=== PATIENT | female | born 1940 | race Caucasian/White ===

== ENCOUNTER 2017-11-08 15:37 | Emergency (ER) | payer OTHER ==
[~2017-11-08] VITALS: Ht 154.9 cm; Wt 35.8 kg
[2017-11-08] MEDS ORDERED: RILUTEK50 MG (16:07)
[2017-11-08] MEDS ORDERED: COZAAR50 MG (16:07)
== END 2017-11-08 21:52 | disposition home or self-care (01) ==
LOC: ER 15:37 → EDBD 15:39 → ER 15:39
DX: R06.02 Shortness of breath (principal)

== ENCOUNTER 2017-11-19 08:49 | Inpatient (IN) | payer OTHER ==
[~2017-11-19] VITALS: Ht 152.4 cm; Wt 31.8 kg
[~2017-11-19 08:49] MED LIST: COZAAR50 MG; RILUTEK50 MG
[2017-11-21] MEDS ORDERED: RILUTEK50 MG PO (12:53)
[2017-11-21] MEDS ORDERED: COZAAR50 MG PO (12:53)
[2017-11-21] MEDS ORDERED: ACID REDUCER20 MG PO (12:54)
== END 2017-11-21 13:53 | disposition home health service (06) | DRG 57 ==
LOC: SURH 08:49 → MEDI 08:49 → SURH 10:29
PROC: 0DH63UZ Insertion of Feeding Device into Stomach, Percutaneous Approach (ICD-10-PCS; principal; 2017-11-19)
PROC: 4A12X4Z Monitoring of Cardiac Electrical Activity, External Approach (ICD-10-PCS; 2017-11-19)
DX: G12.21 Amyotrophic lateral sclerosis (principal); J96.10 Chronic respiratory failure, unspecified whether with hypoxia or hypercapnia; R13.19 Other dysphagia; I11.9 Hypertensive heart disease without heart failure
CPT/HCPCS: 240

== ENCOUNTER 2017-11-25 10:33 | Inpatient (IN) | payer OTHER ==
[~2017-11-25] VITALS: Ht 152.4 cm; Wt 33.1 kg
[~2017-11-25 10:33] MED LIST changes: +ACID REDUCER20 MG PO; +COZAAR50 MG PO; +RILUTEK50 MG PO
[2017-12-30] MEDS ORDERED: XOPENEX0.63 MG/3 IH (12:57)
[2017-12-30] MEDS ORDERED: RILUTEK50 MG PO (12:57)
[2017-12-30] MEDS ORDERED: ACID REDUCER20 MG PO (12:57)
[2017-12-30] MEDS ORDERED: COZAAR50 MG PO (12:57)
== END 2017-12-30 16:59 | disposition home health service (06) | DRG 4 ==
LOC: ER 10:33 → MEDI 21:57 → SEC-K 21:57 → MEDI 11-29 12:16
PROVIDERS: Otolaryngology
PROC: 4A033R1 Measurement of Arterial Saturation, Peripheral, Percutaneous Approach (ICD-10-PCS; 2017-11-25)
PROC: 5A09557 Assistance with Respiratory Ventilation, Greater than 96 Consecutive Hours, Continuous Positive Airway Pressure (ICD-10-PCS; 2017-11-26)
PROC: 4A12X4Z Monitoring of Cardiac Electrical Activity, External Approach (ICD-10-PCS; 2017-11-29)
PROC: 5A1955Z Respiratory Ventilation, Greater than 96 Consecutive Hours (ICD-10-PCS; 2017-12-10)
PROC: 0B110F4 Bypass Trachea to Cutaneous with Tracheostomy Device, Open Approach (ICD-10-PCS; principal; 2017-12-10 07:00)
PROC: 3E0F7GC Introduction of Other Therapeutic Substance into Respiratory Tract, Via Natural or Artificial Opening (ICD-10-PCS; 2017-12-16)
DX: J96.22 Acute and chronic respiratory failure with hypercapnia (principal); G12.21 Amyotrophic lateral sclerosis; N39.0 Urinary tract infection, site not specified; L98.498 Non-pressure chronic ulcer of skin of other sites with other specified severity; Z93.1 Gastrostomy status; I11.9 Hypertensive heart disease without heart failure; R13.19 Other dysphagia; B96.5 Pseudomonas (aeruginosa) (mallei) (pseudomallei) as the cause of diseases classified elsewhere; Z74.01 Bed confinement status; B96.29 Other Escherichia coli [E. coli] as the cause of diseases classified elsewhere